=== PATIENT | female | born 1990 | race Caucasian/White ===

== ENCOUNTER 2016-07-06 09:02 | Emergency (ER) | payer MEDICAID, OTHER ==
[~2016-07-06] VITALS: Ht 172.7 cm; Wt 95.0 kg
[~2016-07-06 09:02] MED LIST: FER325 PO; PRENAT PO; RANI150T9 PO
[2016-07-06 09:23] VITALS: Ht 172.7 cm; Wt 95.0 kg
[2016-07-06 10:27] LABS: ADD UMIC YES; URINE BILIRUBIN (Dip) NEGATIVE (NEGATIVE); URINE BLOOD (Dip) NEGATIVE (NEGATIVE); URINE COLOR LT. YELLOW (YELLOW); URINE GLUCOSE (Dip) NEGATIVE (NEGATIVE); URINE KETONES (Dip) NEGATIVE (NEGATIVE); URINE LEUKOCYTE ESTERASE (Dip) 2+ (NEGATIVE); URINE NITRITE (Dip) NEGATIVE (NEGATIVE); URINE TOTAL PROTEIN (Dip) NEGATIVE (NEGATIVE); URINE UROBILINOGEN (Dip) 0.2 E.U./dL (0.1-1.0)
[2016-07-06] MEDS ORDERED: morphine 4 MG/ML VIAL IV STA (10:47)
[2016-07-06] MEDS ORDERED: ONDANSETRON 4 MG INJ IV STA (10:47)
[2016-07-06 11:00] LABS: BACTERIA,URINE FEW; URINE RBCS NONE SEEN /HPF (0)
--- NOTE | 2016-07-06 11:02 | ERD ---
ER Documentation Chief Complaint Date/Time DATE: 07/06/16 TIME: 10:59 Chief Complaint PELVIC PAIN AND NAUSEA SINCE YESTERDAY HPI This is a 26-year-old female who presents to emergency department today complaining of pelvic pain that started last night. Patient states that she also saw some pink in her urine. Patient states this happened her one time before but went away after a couple of hours. Patient states she has an IUD. Patient says she normally takes Tylenol for pain. Denies any fevers or chills. ROS All systems reviewed and are negative except as per history of present illness. Medications Home Meds Active Scripts Naproxen* (Naprosyn*) 500 Mg Tablet, 500 MG PO BID Y for PAIN AND/OR INFLAMMATION, #30 TAB Prov:PEGGY PARKINSON PA-C 07/06/16 Cephalexin* (Keflex*) 500 Mg Capsule, 500 MG PO QID for 7 Days, CAP Prov:PEGGY PARKINSON PA-C 07/06/16 Hydrocodone/Acetaminophen ([place] 5-325 Tablet) 1 Each Tablet, 1 TAB PO Q6H Y for PAIN, #20 TAB Prov:PEGGY PARKINSON PA-C 07/06/16 Reported Medications Ranitidine Hcl* (Zantac*) 150 Mg Tablet, 150 MG PO HS Y for BOWEL PREP, TAB 12/28/13 Ferrous Sulfate* (Ferrous Sulfate*) 325 Mg Tabec, 325 MG PO DAILY, TAB 12/28/13 Multivit/Min/Fol Ac/Iron/Pren* ( S*) 1 Tab Tab, 1 TAB PO DAILY, TAB 12/28/13 Allergies Allergies: Coded Allergies: No Known Drug Allergy (Verified Allergy, Unknown, 01/13/14) PMhx/Soc Medical and Surgical Hx: pt denies Medical Hx, pt denies Surgical Hx Hx Alcohol Use: No Hx Substance Use: No Hx Tobacco Use: No Smoking Status: Never smoker Physical Exam Vitals Vital Signs Date Time Temp Pulse Resp B/P Pulse Ox O2 Delivery O2 Flow Rate FiO2 07/06/16 09:23 98.4 72 19 109/59 97 Physical Exam Const: Mild distress Head: Atraumatic Eyes: Normal Conjunctiva ENT: Normal External Ears, Nose and Mouth. Neck: Full range of motion..~ No meningismus. Resp: Clear to auscultation bilaterally Cardio: Regular rate and rhythm, no murmurs Abd: Soft, pelvic pain non distended. Normal bowel sounds. No tenderness at McBurney's. No left lower quadrant pain Skin: No petechiae or rashes Back: No midline or flank tenderness Ext: No cyanosis, or edema Neur: Awake and alert Psych: Normal Mood and Affect Result Diagram: 07/06/16 1100 07/06/16 1100 Results 24 hrs Laboratory Tests Test 07/06/16 10:07 07/06/16 11:00 Urine Bacteria FEW Urine Bilirubin NEGATIVE Urine Clarity CLEAR Urine Color LT. YELLOW Urine Epithelial Cells MODERATE Urine Glucose NEGATIVE% Urine Hemoglobin NEGATIVE Urine Ketones NEGATIVE Urine Leukocyte Esterase 2+ Urine Microscopic RBC NONE SEEN/HPF Urine Microscopic WBC 2-5/HPF Urine Nitrite NEGATIVE Urine Specific [place] 1.015 Urine Total Protein NEGATIVE Urine Urobilinogen 0.2 E.U./dL Urine pH 7.0 Alanine Aminotransferase (ALT/SGPT) 22IU/L Albumin 4.4g/dl Albumin/Globulin Ratio 1.07 Alkaline Phosphatase 83IU/L Anion Gap 17 Aspartate Amino Transf (AST/SGOT) 21IU/L Basophils # 0.010^3/ul Basophils % 0.3% Blood Morphology Comment Blood Urea Nitrogen 9mg/dl Calcium Level 9.7mg/dl Carbon Dioxide Level 24mmol/L Chloride Level 105mmol/L Creatinine 0.63mg/dl Direct Bilirubin 0.00mg/dl Eosinophils # 0.110^3/ul Eosinophils % 0.9% Globulin 4.10g/dl Glucose Level 92mg/dl Hematocrit 41.1% Hemoglobin 13.8g/dl Indirect Bilirubin 0.4mg/dl Lymphocytes # 2.110^3/ul Lymphocytes % 23.3% Mean Corpuscular Hemoglobin 28.7pg Mean Corpuscular Hemoglobin Concent 33.4g/dl Mean Corpuscular Volume 85.7fl Mean Platelet Volume 8.4fl Monocytes # 0.810^3/ul Monocytes % 8.4% Neutrophils # 6.110^3/ul Neutrophils % 67.1% Nucleated Red Blood Cells # 0.010^3/ul Nucleated Red Blood Cells % 0.0/100WBC Platelet Count 72242^3/UL Potassium Level 4.3mmol/L Red Blood Count 4.8010^6/ul Red Cell Distribution Width 14.1% Sodium Level 142mmol/L Total Bilirubin 0.4mg/dl Total Protein 8.5g/dl White Blood Count 9.110^3/ul Current Medications Medications (Trade) Dose Ordered Sig/Anthony Route PRN Reason Start Time Stop Time Status Last Admin Dose Admin Morphine Sulfate (morphine) 4 mg ONCE STAT IV 07/06/16 10:47 07/06/16 10:50 DC 07/06/16 10:55 Ondansetron HCl (Zofran Inj) 4 mg ONCE STAT IV 07/06/16 10:47 07/06/16 10:50 DC 07/06/16 10:55 Ketorolac Tromethamine (Toradol) 30 mg ONCE STAT IV 07/06/16 12:57 07/06/16 12:58 DC 07/06/16 13:11 DIAGNOSTIC IMAGING REPORT Patient: SANDRA TEJEDA : 1990 Age: 26 Sex: F MR #: [id number] DOS: 07/06/16 0000 Ordering MD: PEGGY PARKINSON PA-C Location: [facility] Room/Bed: PROCEDURE: US Pelvis. CLINICAL INDICATION: Pelvic pain times 1 day. TECHNIQUE: Multiple sonographic images of the pelvis were obtained utilizing a transabdominal and endovaginal technique. The images were reviewed on a PACS workstation. COMPARISON: None available. FINDINGS: The uterus is visualized and measures 8.5 x 3.5 x 4.8 cm. The endometrial echo complex is remarkable for an IUD and measures 4.9 mm. There is no evidence for free fluid. The right ovary has a normal echotexture and measures 2.6 x 1.9 x 1.9 cm. The left ovary has a normal echotexture and measures 3.9 x 2.6 x 3.6 cm. There is a 2.5 x 2.8 x 1.9 cm left ovarian cyst with some internal echoes. There is Doppler flow seen in both ovaries. No adnexal masses are noted. IMPRESSION: 1. IUD in the endometrium. 2. 2.5 x 2.8 x 1.9 cm left ovarian cyst with some internal echoes. This may represent an hemorrhagic cyst. A short interval follow-up study is suggested to ensure that this resolves. RPTAT: [facility] Srini Red, Physician Date Time Electronically viewed and signed by Srini Red Physician on 07/06/2016 12: 30 JH/ CC: PEGGY PARKINSON PA-C Procedures/MDM This is a 26-year-old female who presents to the emergency department today complaining of pelvic pain that started last night. Patient does have an IUD and she was concerned that has moved. She indicated she thought she would sign pain in her urine and therefore I initially ordered a urine test. Urine test was negative. Laboratory work shows no elevated white blood cell count. She is not anemic. Platelets are within normal limits. Electrolytic within normal limits. Glucose is normal limits. Liver function is within normal limits. UA shows 2+ leukocyte esterase. I will treat the patient for urinary tract infection. Ultrasound shows an IUD in the endometrium. There is no evidence of free fluid. There is a 2.5 x 2.8 x 1.9; left ovarian cyst with some internal echoes. This may represent a hemorrhagic cyst. Short interval follow-up suggested to ensure that this resolves. There is normal Doppler flow seen in both ovaries and there are no adnexal masses. Pelvic pain may be related to the ovarian cyst as well as an urinary tract infection.Low suspicion for ectopic , tubal ovarian abscess or ovarian torsion. Patient has no abdominal pain of low suspicion for any acute surgical abdomen. She was given Zofran and morphine here in the emergency department. Patient continued to have pain and was therefore given Toradol. She'll be given a prescription for Keflex, [place] and Naprosyn. He was instructed to a follow-up with a [facility]. I have given her a list of resources. At this time the patient is stable for discharge and outpatient management. Patient should follow up with their PCP in the next 1-2 days. They may return to the emergency department sooner for any persistent or worsening of symptoms. Patient understood and agreed with the plan. Discussed the patient with Dr. Herrmann and he is in agreement with the plan. Departure Diagnosis: Primary Impression: Acute pain in female pelvis Condition: Fair PEGGY PARKINSON PA-C Jul 06, 2016 11:02
[2016-07-06 11:18] LABS: BASOPHILS % 0.3 % (0.0-2.0); EOSINOPHILS # 0.1 10^3/ul (0.0-0.5); EOSINOPHILS % 0.9 % (0.0-7.0); HEMATOCRIT 41.1 % (37.0-47.0); HEMOGLOBIN 13.8 g/dl (12.0-16.0); LYMPHOCYTES # 2.1 10^3/ul (0.8-2.9); LYMPHOCYTES % 23.3 % (15.0-51.0); MEAN CORPUSCULAR HEMOGLOBIN 28.7 pg (29.0-33.0); MEAN CORPUSCULAR HGB CONC 33.4 g/dl (32.0-37.0); MEAN CORPUSCULAR VOLUME 85.7 fl (82.0-101.0); MEAN PLATELET VOLUME 8.4 fl (7.4-10.4); MONOCYTE # 0.8 10^3/ul (0.3-0.9); MONOCYTES % 8.4 % (0.0-11.0); NEUTROPHIL # 6.1 10^3/ul (1.6-7.5); NEUTROPHILS % 67.1 % (39.0-77.0); PLATELET COUNT 340 10^3/UL (140-440); RED CELL DISTRIBUTION WIDTH 14.1 % (11.5-14.5); UNCORRECTED WBC 9.1 10^3/ul (4.8-10.8); WHITE BLOOD COUNT 9.1 10^3/ul (4.8-10.8)
[2016-07-06 11:19] LABS: CONDITION 1
[2016-07-06 11:37] LABS: ALBUMIN 4.4 g/dl (3.3-4.9)
[2016-07-06 11:38] LABS: POTASSIUM 4.3 mmol/L (3.5-5.1)
[2016-07-06 11:40] LABS: ALBUMIN/GLOBULIN RATIO 1.07; BILIRUBIN,INDIRECT 0.4 mg/dl (0-1.1); BILIRUBIN,TOTAL 0.4 mg/dl (0.2-1.3); CALCIUM 9.7 mg/dl (8.4-10.2); CREATININE 0.63 mg/dl (0.44-1.00); TOTAL PROTEIN 8.5 g/dl (6.1-8.1)
--- NOTE | 2016-07-06 12:31 | RADRPT ---
PROCEDURE: US Pelvis. CLINICAL INDICATION: Pelvic pain times 1 day. TECHNIQUE: Multiple sonographic images of the pelvis were obtained utilizing a transabdominal and endovaginal technique. The images were reviewed on a PACS workstation. COMPARISON: None available. FINDINGS: The uterus is visualized and measures 8.5 x 3.5 x 4.8 cm. The endometrial echo complex is remarkable for an IUD and measures 4.9 mm. There is no evidence for free fluid. The right ovary has a normal e chotexture and measures 2.6 x 1.9 x 1.9 cm. The left ovary has a normal echotexture and measures 3. 9 x 2.6 x 3.6 cm. There is a 2.5 x 2.8 x 1.9 cm left ovarian cyst with some internal echoes. There i s Doppler flow seen in both ovaries. No adnexal masses are noted. IMPRESSION: 1. IUD in the endometrium. 2. 2.5 x 2.8 x 1.9 cm left ovarian cyst with some internal echoes. This may represent an hemorrhag ic cyst. A short interval follow-up study is suggested to ensure that this resolves. RPTAT: [facility] Physician Alayna Date Time Electronically viewed and signed by Physician Alayna on 07/06/2016 12:30 /
[2016-07-06] MEDS ORDERED: KETOROLAC 30 MG INJ IV STA (12:57)
[2016-07-06] MEDS ORDERED: HYDR-906 PO (13:22)
[2016-07-06] MEDS ORDERED: CEPH-443 PO (13:23)
[2016-07-06] MEDS ORDERED: NAPR-260 PO (13:23)
[2016-07-06 13:34] VITALS: BP 110/59; PULSE 77; RESP 18; TEMP 98.4
== END 2016-07-06 13:35 | disposition home or self-care (01) ==
LOC: FTE 09:02
DX: R10.2 Pelvic and perineal pain (principal); R11.0 Nausea
CPT/HCPCS: 76830; 76856; 80053; 81001; 85025; 96374; 96375; J1885; J2270; J2405; Z7502; 81003

== ENCOUNTER 2017-04-07 20:10 | Emergency (ER) | payer MEDICAID, OTHER ==
[~2017-04-07] VITALS: Ht 172.7 cm; Wt 90.9 kg
[~2017-04-07 20:10] MED LIST changes: +CEPH-443 PO; +HYDR-906 PO; +NAPR-260 PO
[2017-04-07 22:08] VITALS: Ht 172.7 cm; Wt 90.9 kg
[2017-04-07] MEDS ORDERED: KETOROLAC 60 MG INJ IM STA (23:09)
[2017-04-07] MEDS ORDERED: TRAM50TA2 PO (23:19)
[2017-04-07] MEDS ORDERED: PRED50TA PO (23:19)
[2017-04-07] MEDS ORDERED: METHYLPREDNISOLONE 125 MG INJ IM ONE (23:30)
--- NOTE | 2017-04-07 23:30 | ERD ---
ER Documentation Chief Complaint Chief Complaint RT SD SCIATIC PAIN TODAY. RX MEDS INEFFECTIVE. HPI 26-year-old female presents here in the emergency department for complaints of right lower back pain radiating to the right lower leg, has chronic pain for the last 8 years, has had pain management, physical therapy, is scheduled to see specialist at the end of the month for management. Patient states that the pain just got more severe today. Patient took Flexeril this morning, with only mild relief, refuses to take any other pain medication. Patient describes the pain as throbbing sharp pain, 8/10 scale, it radiates from the right lower back to the right lower leg. Patient denies any other injury. Patient denies any fever chills. Patient denies any incontinence. Patient denies any hematuria or dysuria. ROS All systems reviewed and are negative except as per history of present illness. Medications Home Meds Active Scripts Tramadol HCl (Tramadol HCl) 50 Mg Tablet, 50 MG PO Q6 for SEVERE PAIN LEVEL 7-10 , #20 TAB Prov:DANIEL MCDOWELL NP 04/07/17 Prednisone* (Prednisone*) 50 Mg Tablet, 50 MG PO DAILY for 5 Days, TAB Prov:DANIEL MCDOWELL NP 04/07/17 Naproxen* (Naprosyn*) 500 Mg Tablet, 500 MG PO BID Y for PAIN AND/OR INFLAMMATION, #30 TAB Prov:PEGGY PARKINSON PA-C 07/06/16 Cephalexin* (Keflex*) 500 Mg Capsule, 500 MG PO QID for 7 Days, CAP Prov:PEGGY PARKINSON PA-C 07/06/16 Hydrocodone/Acetaminophen ([place] 5-325 Tablet) 1 Each Tablet, 1 TAB PO Q6H Y for PAIN, #20 TAB Prov:PEGGY PARKINSON PA-C 07/06/16 Reported Medications Ranitidine Hcl* (Zantac*) 150 Mg Tablet, 150 MG PO HS Y for BOWEL PREP, TAB 12/28/13 Ferrous Sulfate* (Ferrous Sulfate*) 325 Mg Tabec, 325 MG PO DAILY, TAB 12/28/13 Multivit/Min/Fol Ac/Iron/Pren* ( S*) 1 Tab Tab, 1 TAB PO DAILY, TAB 12/28/13 Allergies Allergies: Coded Allergies: No Known Drug Allergy (Verified Allergy, Unknown, 04/07/17) PMhx/Soc History of Surgery: No Anesthesia Reaction: No Hx Neurological Disorder: No Hx Respiratory Disorders: No Hx Cardiac Disorders: No Hx Psychiatric Problems: No Hx Miscellaneous Medical Probl: Yes (sciatica) Hx Alcohol Use: No Hx Substance Use: No Hx Tobacco Use: No Smoking Status: Never smoker FmHx Family History: No coronary disease, No diabetes, No other Physical Exam Vitals Vital Signs Date Time Temp Pulse Resp B/P Pulse Ox O2 Delivery O2 Flow Rate FiO2 04/07/17 22:08 99.3 113 18 130/80 95 Physical Exam GENERAL: The patient is well developed and appropriate for usual state of health, in no apparent distress. CHEST: Clear to auscultation bilaterally. There are no rales, wheezes or rhonchi. HEART: Regular rate and rhythm. No murmurs, clicks, rubs or gallops. No S3 or S4. ABDOMEN: Soft, nontender and nondistended. Good bowel sounds. No rebound or guarding. No gross peritonitis. No gross organomegaly or masses. No Ny sign or McBurney point tenderness. BACK: No midline or flank tenderness. Negative right straight leg test. EXTREMITIES: Equal pulses bilaterally. There is no peripheral clubbing, cyanosis or edema. No focal swelling or erythema. Full range of motion. Grossly neurovascularly intact. NEURO: Alert and oriented. Cranial nerves 2-12 intact. Motor strength in all 4 extremities with 5/5 strength. Sensation grossly intact. Normal speech and gait. SKIN: There is no apparent rash or petechia. The skin is warm and dry. HEMATOLOGIC AND LYMPHATIC: There is no evidence of excessive bruising or lymphedema. No gross cervical, axillary, or inguinal lymphadenopathy. Results 24 hrs Current Medications Medications (Trade) Dose Ordered Sig/Anthony Route PRN Reason Start Time Stop Time Status Last Admin Dose Admin Ketorolac Tromethamine (Toradol) 60 mg ONCE STAT IM 04/07/17 23:09 04/07/17 23:10 DC Methylprednisolone Sodium Succinate (Solu-Medrol) 125 mg ONCE ONCE IM 04/07/17 23:30 04/07/17 23:31 Solu-Medrol and Toradol was given here in emergency department, verbalized feeling much better afterwards. Procedures/MDM Medical Decision Making: Patient's pain is most likely consistent with a chronic back pain from sciatica. There is no suspicion for neurovascular compromise. Patient has intact sensation and circulation of the affected extremity and distal extremities. No incontinence, no suspicion for cauda equina syndrome, no saddle anesthesia, no symptoms of any acute bacterial infection, no symptoms of any perirectal abscesses, pilonidal cyst.There is low suspicion for septic arthritis. Patient does not have any fever. No symptoms of any aortic dissection or aortic aneurysm. Radiology exam not indicated at this time. Disposition: Home. Patient is given prescription for tramadol and prednisone. Patient was advised to avoid heavy lifting , apply warm compresses on affected area. Patient was advised that if symptoms are worse, numbness, tingling, high fever, unable to move joint, worsening symptoms, to return to emergency department immediately. Otherwise, patient is advised to follow up with the primary care doctor in 5-7 days for reevaluation of symptoms. Disclaimer: Inadvertent spelling and grammatical errors are likely due to EHR/ dictation software use and do not reflect on the overall quality of patient care. Also, please note that the electronic time recorded on this note does not necessarily reflect the actual time of the patient encounter. Departure Diagnosis: Primary Impression: Back pain Back pain location: low back pain Chronicity: chronic Back pain laterality : right Sciatica presence: with sciatica Sciatica laterality: sciatica of right side Qualified Code: M54.41 - Chronic right-sided low back pain with right-sided sciatica Condition: Stable Patient Instructions: Back Pain W/ Sciatica DANIEL MCDOWELL NP Apr 07, 2017 23:29
== END 2017-04-07 23:35 | disposition home or self-care (01) ==
LOC: FTE 20:10
DX: M54.41 Lumbago with sciatica, right side (principal)
CPT/HCPCS: 96372; J1885; J2930; Z7502